=== PATIENT | male | born 1945 | race Caucasian/White ===

== ENCOUNTER 2021-12-13 06:38 | Outpatient (CLI) | payer MEDICARE ==
[~2021-12-13] VITALS: Ht 167.6 cm; Wt 79.4 kg
[~2021-12-13 06:38] MED LIST: ASPI-999 PO; ATOR20TA66 PO; BENA1TAB15 PO; CLON0.5T4 PO; FINA5TAB6 PO; GLBR5T PO; METF-398 PO; NAPR-1084 PO
[2021-12-17] MEDS ORDERED: CLON1TAB13 PO (12:21)
[2021-12-17] MEDS ORDERED: ATOR40TA70 PO (12:21)
[2021-12-17] MEDS ORDERED: MAGN250T13 PO (12:21)
[2021-12-17] MEDS ORDERED: MULT-851 PO (12:21)
[2021-12-17] MEDS ORDERED: CYAN500011 PO (12:21)
[2021-12-17] MEDS ORDERED: GLBR5T PO (12:21)
== END 2021-12-17 13:44 | disposition home or self-care (01) ==
LOC: PREOP 06:38
PROVIDERS: ATTEND Internal Medicine
DX: Z01.818 Encounter for other preprocedural examination (principal)

== ENCOUNTER 2021-12-21 08:52 | Day surgery (SDC) | payer MEDICARE ==
--- NOTE | 2021-12-12 21:08 | HISTORY AND PHYSICAL ---
DATE OF SERVICE: EDG HISTORY AND PHYSICAL HISTORY OF PRESENT ILLNESS: The patient is a 76-year-old white male seen for evaluation of type 2 diabetes. He came in reporting that his had insisted that he talked with me about the fact that for the last year at least he has had eat very slowly and cut up his food, especially solids such as meats into very small pieces and chew carefully; otherwise, a lot of sticking sensation pointing to the lower precordial area. On rare occasions, he has had to regurgitate his food, usually he just waits and it passes on its own. He has had no previous history of EGD or barium evaluation that he can recall. He reports occasional heartburn that he is not bad enough that he is taking anything. On rare occasion, he will take Tums. He denies melena or bright red blood per rectum. His weight was down 5.2 pounds over the past four months. Reports that he has been feeling well otherwise and voices no other complaints. PHYSICAL EXAMINATION: GENERAL: Reveals a white male, appeared to be in no acute distress. VITAL SIGNS: Weight 171.2 pounds, blood pressure 132/84. CHEST: Clear. CARDIOVASCULAR: Reveals regular rate and rhythm. Soft 1 to 2/6 systolic ejection murmur heard best at the second right intercostal space without evidence for pulsus, parvus or tardus. No S3 or S4 noted. ABDOMEN: Soft, supple without mass, organomegaly or tenderness. Bowel sounds positive. EXTREMITIES: No cyanosis, clubbing or edema. LABORATORY DATA: Blood tests were reviewed with the patient, A1c with his weight loss has improved at 6.6% compared to 6.7% with a fasting sugar of 76. Remainder of his basic metabolic panel was normal with an estimated GFR of 69. ASSESSMENT AND PLAN: 1. For evaluation of dysphagia and weight loss, the patient is being set up for diagnostic EGD. Further recommendations pending. 2. Type 2 diabetes, continues to be under good control with no diabetic complication. Continue current medications. We will see him back in 4 months with a basic metabolic panel and an A1c. Job ID: [id number] DocumentID: [id number] Dictated Date: 12/06/2021 11:50:08 [employer] Date: 12/06/2021 12:34:53 Dictated By: BABS FRENCH MD
[~2021-12-21] VITALS: Ht 167.6 cm; Wt 79.4 kg
[~2021-12-21 08:52] MED LIST changes: +ATOR40TA70 PO; +CLON1TAB13 PO; +CYAN500011 PO; +MAGN250T13 PO; +MULT-851 PO
[2021-12-21] MEDS ORDERED: LACTATED RINGERS 1,000 ML IV STA (09:03)
[2021-12-21] MEDS ORDERED: HURRICAINE EXT TUBE (BENZOCAINE) XX PRN (09:15)
[2021-12-21 09:16] VITALS: BP 137/95
--- NOTE | 2021-12-21 09:28 | Pre-Op Note & Conscious Sedat ---
Pre-Operative Progress Note H&P Reviewed The H&P was reviewed, patient examined and no changes noted. Date H&P Reviewed: December 21, 2021 Time H&P Reviewed: 09:28 Conscious Sedation Pre-Proced ASA Score 2 For ASA 3 and 4: Consider anesthesia and medical clearance. Also, for patients with a history of failed moderate sedation consider anesthesia. Airway Lungs Heart ASA score ASA 1: a normal healthy patient ASA 2: a patient with a mild systemic disease (mid diabetes, controlled hypertension, obesity ASA 3: a patient with a severe systemic disease that limits activity (angina, COPD, prior Myocardial infarction) ASA 4: a patient with an incapacitating disease that is a constant threat to life (CHF, renal failure) ASA 5: a moribund patient not expected to survive 24 hrs. (ruptured aneurysm) ASA 6: a declared brain- patient whose organs are being harvested. For emergent operations, add the letter E after the classification Mallampati Classification Grade 2 Sedation Plan Analgesia, Amnesia, Plan communicated to team members, Discussed options with patient/fam, Discussed risks with patient/fam The patient is an appropriate candidate to undergo the planned procedure, sedation, and anesthesia. The patient immediately re-assessed prior to indication. BABS FRENCH MD December 21, 2021 09:28
[2021-12-21] MEDS ORDERED: MIDAZOLAM 2 MG/2 ML (VERSED) VIAL ONE (10:07)
[2021-12-21] MEDS ORDERED: PROPOFOL INJECTION 50 ML IV ONE (10:07)
[2021-12-21 10:20] VITALS: BP 120/70
[2021-12-21 10:25] VITALS: BP 121/74
[2021-12-21 10:45] VITALS: BP 118/71
[2021-12-21 11:21] VITALS: BP 118/71
--- NOTE | 2021-12-21 14:44 | Anesthesia-General Post-Op ---
MAC Patient Condition Mental Status/LOC: Same as Preop Cardiovascular: Satisfactory Nausea/Vomiting: Absent Respiratory: Satisfactory Pain: Controlled Complications: Absent Post Op Complications Complications None Follow Up Care/Instructions Patient Instructions None needed. Anesthesiology Discharge Order Discharge Order Patient is doing well, no complaints, stable vital signs, no apparent adverse anesthesia problems. No complications reported per nursing. LUIS NEWMAN CRNA December 21, 2021 14:44
--- NOTE | 2021-12-21 15:58 | OPERATIVE REPORT ---
DATE OF SERVICE: EGD SUMMARY INDICATION FOR THE PROCEDURE: Dysphagia, weight loss. DESCRIPTION OF PROCEDURE: The patient was placed in the left lateral decubitus position. The endoscope was inserted in the oral cavity and under direct visualization, the esophagus was intubated. The endoscope was passed down the esophagus through stomach in the second portion of the duodenum. Careful inspection was made as the endoscope was withdrawn. FINDINGS: The posterior pharynx, true and false vocal folds and arytenoid aperture as well as epiglottis were unremarkable to visual inspection. Proximal, mid and distal esophagus were unremarkable. There was some mild erythema noted at the Z-line with no evidence for erosive esophagitis. There is no evidence for Keenan's change. No rings, webs or strictures were noted. There was no evidence for any kind of variegated pattern to the esophagus. The cardia and fundus of the stomach were unremarkable. There were some circular areas of erythema without erosion or ulceration noted in the antrum compatible with likely aspirin related gastropathy. The pylorus, pyloric channel, duodenal bulb and second portion of the duodenum were unremarkable. ASSESSMENT: Minimal erythema was noted at the Z-line without evidence for hiatal hernia formation and no evidence for rings, webs, strictures or Keenan's change and no evidence for erosive esophagitis. Findings in the antrum compatible with aspirin related gastropathy were noted. The patient was reassured by today's findings. Job ID: [id number] DocumentID: [id number] Dictated Date: 12/21/2021 10:23:42 [employer] Date: 12/21/2021 15:58:06 Dictated By: BABS FRENCH MD [facility]
== END 2021-12-21 11:21 | disposition home or self-care (01) ==
LOC: ENDO 08:52
PROVIDERS: ATTEND Internal Medicine
DX: R13.10 Dysphagia, unspecified (principal); R63.4 Abnormal weight loss; K31.89 Other diseases of stomach and duodenum; E11.9 Type 2 diabetes mellitus without complications; Z79.84 Long term (current) use of oral hypoglycemic drugs